=== PATIENT | female | born 1980 | race Caucasian/White ===

== ENCOUNTER 2016-11-27 18:27 | Emergency (ER) | payer BC, OTHER ==
[~2016-11-27] VITALS: Ht 167.6 cm; Wt 77.1 kg
[2016-11-27] MEDS ORDERED: HYDROcodone-ACET 10/325MG TAB PO ONE (21:30)
[2016-11-27 21:42] VITALS: BP 115/70
[2016-11-27 21:43] LABS: Urine Bilirubin Negative (Negative); Urine Blood Negative /uL (Negative); Urine Color Yellow (Yellow); Urine Glucose Normal (Normal); Urine Ketone Negative (Negative); Urine Nitrite Negative (Negative); Urine RBC <1 /hpf (0 - 4); Urine Urobilinogen Normal (Negative); Urine pH 7.5 (5.0-8.0)
== END 2016-11-27 23:22 | disposition home or self-care (01) ==
LOC: EDAGE 18:27 → ER 18:31
CPT/HCPCS: 71250; 74176; 80307; 81001; 81025